=== PATIENT | male | born 1955 | race African-American/Black ===

== ENCOUNTER 2020-07-24 01:42 | Emergency (ER) | payer MEDICARE ==
[~2020-07-24] VITALS: Ht 167.6 cm; Wt 68.0 kg
[2020-07-24 03:24] LABS: BASOPHILS % 0.4 % (0.0-2.0); EOSINOPHILS % 0.3 % (0.0-5.0); HEMATOCRIT. 36.6 % (42.0-52.0); HEMOGLOBIN. 12.1 g/dL (14.0-18.0); LYMPHOCYTES % 18.1 % (20.0-50.0); MEAN CORPUSCULAR HEMOGLOBIN 25.6 pg (28.0-32.0); MEAN CORPUSCULAR VOLUME 77.2 fL (80.0-94.0); MEAN PLATELET VOLUME 8.6 fl (7.4-10.4); MONOCYTES % 5.1 % (2.0-8.0); NEUTROPHILS % 76.1 % (40.0-76.0); PLATELET 208 x1000/uL (130-400); RED BLOOD CELL COUNT 4.74 mill/uL (4.7-6.1); RED CELL DISTRIBUTION WIDTH 16.5 % (11.6-14.6)
[2020-07-24 03:29] LABS: CHLORIDE 104 mEq/L (98-107)
[2020-07-24 03:35] LABS: ETHANOL BLOOD 123 mg/dL
[2020-07-24 03:39] LABS: CREATINE KINASE 469 IU/L (39-308)
[2020-07-24 07:16] VITALS: BP 127/78
== END 2020-07-24 07:17 | disposition home or self-care (01) ==
LOC: ER 01:42
DX: F10.129 Alcohol abuse with intoxication, unspecified (principal); Y90.6 Blood alcohol level of 120-199 mg/100 ml; R03.0 Elevated blood-pressure reading, without diagnosis of hypertension
CPT/HCPCS: 36415; 71045; 80053; 80320; 82550; 85025; 93005; 99285; G0480

== ENCOUNTER 2023-02-13 13:04 | Emergency (ER) | payer MEDICARE ==
[~2023-02-13] VITALS: Ht 172.7 cm; Wt 81.0 kg
[2023-02-13 13:22] VITALS: BP 164/97; RESP 20; TEMP 98.2; O2SAT 95
[2023-02-13 13:24] VITALS: PULSE 64
== END 2023-02-13 15:14 | disposition left against medical advice (07) ==
LOC: ER 13:04
DX: R41.82 Altered mental status, unspecified (principal); Z86.73 Personal history of transient ischemic attack (TIA), and cerebral infarction without residual deficits
CPT/HCPCS: 82962; 70450; 93005; 99284; Z7610